=== PATIENT | female | born 1980 | race Caucasian/White ===

== ENCOUNTER → 2021-07-09 17:51 | Outpatient (CLI) | payer OTHER, SELFPAY ==
--- NOTE | ~2021-07-09 | MM_ITS ---
EXAMINATION: MM scrn nasra implant BI w olegario HISTORY: Screening mammogram TECHNIQUE: Craniocaudal and mediolateral oblique 3-D tomosynthesis images with implant displacement a nd synthetic 2-D images were generated. Craniocaudal and mediolateral oblique views of the breasts wi thout implant displacement were obtained using full field digital mammography. CAD analysis was submi tted and interpreted. COMPARISON: No prior mammogram is available for comparison at this institution. BREAST PARENCHYMAL COMPOSITION: The breasts are heterogeneously dense, which may obscure small masses . FINDINGS: Status post bilateral augmentation mammoplasty. There is no evidence of suspicious mass, ca lcification, or architectural distortion to suggest malignancy in either breast. There has been no bustamante spicious interval change. IMPRESSION: 1. No mammographic evidence of malignancy. 2. Recommend routine screening mammography in one year. BI-RADS Category 1: Negative Reviewed, dictated and finalized at location A.
== END ==
PROVIDERS: Visit Provider Obstetrics & Gynecology
DX: Z12.31 Encounter for screening mammogram for malignant neoplasm of breast (principal)
CPT/HCPCS: 77063; 77067

== ENCOUNTER → 2021-07-22 15:02 | Outpatient (CLI) | payer OTHER, SELFPAY ==
--- NOTE | ~2021-07-22 | US_ITS ---
EXAMINATION: US pelvic complete w TV DATE: 07/22/2021 16:03 INDICATION: Abdominal distention. TECHNIQUE: Multiple transabdominal and transvaginal sonographic images of the pelvis were obtained. COMPARISON: None. FINDINGS: TRANSABDOMINAL ULTRASOUND: The uterus measures 7.6 x 3.2 x 4.3 cm. There is no free fluid in the pelvis. TRANSVAGINAL ULTRASOUND: The endometrial complex measures 8 mm in thickness. There are 1.1 cm, 2.1 cm, and 1.0 cm hypoechoic s ubserosal fibroids. The right ovary measures 4.0 x 2.3 x 2.5 cm. The left ovary measures 1.9 x 1.2 x 2.3 cm. There is normal vascular flow in the ovaries. IMPRESSION: 1. Uterine fibroids. Reviewed, dictated and finalized at location A. IMPRESSION: 1. Uterine fibroids.
== END ==
PROVIDERS: Visit Provider Obstetrics & Gynecology
DX: R14.0 Abdominal distension (gaseous) (principal); D25.9 Leiomyoma of uterus, unspecified
CPT/HCPCS: 76830; 76856

== ENCOUNTER → 2022-04-15 08:04 | Outpatient (CLI) | payer OTHER, SELFPAY ==
--- NOTE | ~2022-04-15 | XR_ITS ---
XR sacroiliac joints min 3V DATE: 04/15/2022 09:03 INDICATION: Polyarticular psoriatic arthritis TECHNIQUE: AP and bilateral oblique views COMPARISON: None FINDINGS: The sacroiliac joints are intact without evidence of erosion, ankylosis, diastasis, fractur e or bone destruction. IMPRESSION: Negative Reviewed, dictated and finalized at [facility]. Reviewed, dictated and finalized at location B. IMPRESSION: Negative
--- NOTE | ~2022-04-15 | XR_ITS ---
EXAMINATION: XR chest 2V 04/15/2022 09:03 INDICATION: Tuberculosis PROCEDURE: 2 view chest COMPARISON: No prior studies for comparison. FINDINGS: The lungs are clear. The cardiomediastinal silhouette is within normal limits. There are no pleural effusions. There is no pneumothorax suspected. IMPRESSION: 1: NO ACUTE CARDIOPULMONARY DISEASE. Reviewed, dictated and finalized at location A.
== END ==
PROVIDERS: Visit Provider Internal Medicine
DX: G47.00 Insomnia, unspecified (principal); L40.59 Other psoriatic arthropathy; A15.9 Respiratory tuberculosis unspecified
CPT/HCPCS: 71046; 72202

== ENCOUNTER → 2023-06-14 16:31 | Outpatient (CLI) | payer OTHER, SELFPAY ==
--- NOTE | ~2023-06-14 | MM_ITS ---
EXAMINATION: MM scrn nasra implant BI w olegario HISTORY: Screening mammogram TECHNIQUE: Craniocaudal and mediolateral oblique 3-D tomosynthesis images with implant displacement a nd synthetic 2-D images were generated. Craniocaudal and mediolateral oblique views of the breasts wi thout implant displacement were obtained using full field digital mammography. CAD analysis was submi tted and interpreted. COMPARISON: 07/09/2021 BREAST PARENCHYMAL COMPOSITION: There are scattered areas of fibroglandular density. FINDINGS: RIGHT BREAST: There is no evidence of suspicious mass, calcification, or architectural distortion to suggest malignancy. There has been no significant interval change. LEFT BREAST: There is a possible mass in the middle third of the upper breast 3.5 cm from the nipple on the implant displaced views. IMPRESSION: 1. Possible left breast mass. 2. Additional mammographic views and possible breast ultrasound are recommended. BI-RADS Category 0: Incomplete: Needs additional imaging evaluation. Reviewed, dictated and finalized at location A. IMPRESSION: 1. Possible left breast mass. 2. Additional mammographic views and possible breast ultrasound are recommended . BI-RADS Category 0: Incomplete: Needs additional imaging evaluation.
== END ==
PROVIDERS: PCP Obstetrics & Gynecology; Visit Provider Obstetrics & Gynecology
DX: Z12.31 Encounter for screening mammogram for malignant neoplasm of breast (principal); R92.8 Other abnormal and inconclusive findings on diagnostic imaging of breast
CPT/HCPCS: 77063; 77067

== ENCOUNTER → 2023-07-30 08:05 | Outpatient (CLI) | payer OTHER, SELFPAY ==
--- NOTE | ~2023-07-30 | MMUS_ITS ---
EXAMINATION: MM diag nasra implant LT w olegario, US breast LT complete HISTORY: Possible left breast mass reported on 06/06/2023 TECHNIQUE: Additional 3-D tomosynthesis images of the left breast were performed and synthetic 2-D im ages were generated. CAD analysis was submitted and interpreted. High resolution complete left breast ultrasound examination including all 4 quadrants and subareolar area was performed. COMPARISON: 06/14/2023 bilateral implant screening mammogram FINDINGS: MAMMOGRAPHIC FINDINGS: No suspicious mass, architectural distortion, malignant calcification, skin thickening or retraction is detected. ULTRASOUND: 3:00 4 cm from nipple: 2.1 x 2.7 x 3.3 mm parallel circumscribed hypoechoic lesion without internal v ascularity or posterior shadowing, probably benign 9:00 subareolar area: 1.4 x 2.3 x 2.6 mm parallel circumscribed hypoechoic area, probably benign 9:00 subareolar area: 1.6 x 2.5 x 3 mm parallel circumscribed probable small cyst, without internal v ascularity or posterior shadowing 11-12:00 4 cm from nipple: 1.4 x 2.7 x 2 mm sonolucency without internal vascularity or posterior sha dowing, probably benign IMPRESSION: 1. Probable benign findings 2. 6 month follow-up limited left breast ultrasound examination is recommended BI-RADS category 3, probably benign findings. Reviewed, dictated and finalized at location A. IMPRESSION: 1. Probable benign findings 2. 6 month follow-up limited left breast ultrasound examination is recommended BI-RADS category 3, probably benign findings.
== END ==
PROVIDERS: PCP Obstetrics & Gynecology; Visit Provider Obstetrics & Gynecology
DX: R92.8 Other abnormal and inconclusive findings on diagnostic imaging of breast (principal)
CPT/HCPCS: 76641; 77061; 77065; G0279

== ENCOUNTER 2024-04-10 08:23 | Outpatient (CLI) | payer OTHER, SELFPAY ==
--- NOTE | ~2024-04-10 | US_ITS ---
EXAMINATION: US breast LT limited HISTORY: Six-month follow-up exam in the left breast TECHNIQUE: High resolution limited left breast ultrasound was performed. COMPARISON: 07/30/2023 FINDINGS: 2 mm hypoechoic, partially cystic structure at the 3:00 position left breast, 4 cm from the nipple, i s similar to minimally decreased from prior exam. 2 mm hypoechoic structure at the 9:00 left breast i n the areolar region is stable to mildly decreased from prior exam. Additional 2 mm hypoechoic struct ure at the left breast 11:00 position, 4 cm from the nipple, is also stable to minimally decreased fr om prior exam. IMPRESSION: Tiny sonographic lesions in the left breast, as detailed above, are stable to minimally decreased fr om prior exam, therefore consistent with benign findings. BI-RADS Category 2: Benign finding(s). Reviewed, dictated and finalized at location . IMPRESSION: Tiny sonographic lesions in the left breast, as detailed above, are stable to minimally decreased from prior exam, therefore consistent with benign findings. BI-RADS Category 2: Benign finding(s).
== END 2024-04-10 08:24 ==
LOC: MICIMG 08:25
PROVIDERS: PCP Obstetrics & Gynecology
DX: R92.8 Other abnormal and inconclusive findings on diagnostic imaging of breast (principal)
CPT/HCPCS: 76642